=== PATIENT | female | born 1940 | race Two or more races ===

== ENCOUNTER 2016-12-03 18:09 | Inpatient (IN) | payer MEDICARE, MEDICAID ==
[2016-12-03] MEDS ORDERED: Sodium Chloride 0.9% 1,000 ML IV ONE ×2 (18:28→20:13)
--- NOTE | 2016-12-03 18:40 | ED Physician Chart ---
Chief Complaint/HPI - Patient Information Date Seen:: 12/03/16 Time Seen:: 18:24 Chief Complaint:: HYPONATREMIA, HYPERGLYCEMIA, POOR FOOD INTAKE. History of Present Illness:: The patient states that she is here in the emergency department because she can' t eat. She has lost her appetite she is able to swallow liquids. Paperwork which accompany the patient stated she was also being sent to the emergency department for evaluation of laboratory studies, specifically hyponatremia and hyperglycemia. Patient denies any pain anywhere, any vomiting or diarrhea, fever, chills or sweats. Patient does complain of generalized weakness. Allergies:: Allergies Allergy/AdvReac Type Severity Reaction Status Date / Time No Known Allergies Allergy Verified 12/03/16 18:22 <Kevin Cox - Last Filed: 12/03/16 19:20> - Patient Information Allergies:: Allergies Allergy/AdvReac Type Severity Reaction Status Date / Time No Known Allergies Allergy Verified 12/03/16 18:22 Vitals:: Vital Signs - 8 hr 12/03/16 12/03/16 12/03/16 18:29 18:30 19:30 Temp 97.9 F 97.8 F HR 93 83 RR 16 18 BP 150/84 172/72 184/78 O2 Sat % 97 98 12/03/16 12/03/16 20:17 20:18 Temp HR 87 87 RR 19 BP 200/75 O2 Sat % 97 <Eliud Dubon - Last Filed: 12/03/16 20:51> Review of Systems - Review of Systems General/Constitutional: No fever, No chills, No diaphoresis, Loss of appetite, Other (no recent head injury, falls or other trauma.) Skin: No skin lesions, No rash, No bruising Head: No headache Eyes: No loss of vision, No pain, No diplopia ENT: No earache, No nasal drainage, No sore throat, No tinnitus Neck: No neck pain, No swelling, No thyromegaly, No stiffness, No mass noted Cardio Vascular: No chest pain, No palpitations, No PND, No edema Pulmonary: No SOB, No cough, No sputum, No wheezing GI: Nausea, No vomiting, No diarrhea, No pain, Hematemesis G/U: Dysuria, No frequency, No hematuria, Other (patient reports having mild dysuria.) News Specialist: No vaginal discharge Musculoskeletal: No bone or joint pain, No back pain, No muscle pain Psychiatric: Suicidal ideation, No suicidal ideation Hematopoietic: No bruising, No lymphadenopathy Allergic/Immuno: No urticaria, No angioedema Neurological: No syncope, No focal symptoms, Weakness (weakness is not focal but generalized.), No paresthesia, No headache, No seizure, Confusion (patient is aware of her name and that she is in a hospital but has no idea of what year it is.), No vertigo <Kevin Cox - Last Filed: 12/03/16 19:20> Past Medical History - Past Medical History Past Medical History: Other (history of sepsis secondary to pyelonephritis recently. He should also is status post cardiac arrest. History of anemia. Patient is also status post cataract surgery both eyes and .) Family History: Heart disease, Diabetes [place] Social History: Non Smoker, No Alcohol, No Drug Use, Care Facility Surgical History: Hysterectomy (cataract surgery both eyes.) <Kevin Cox - Last Filed: 12/03/16 19:20> Family Medical History - Family Member Mother History Unknown: Yes <Kevin Cox - Last Filed: 12/03/16 19:20> Physical Exam - Physical Examination General/Constitutional: Well-developed, well-nourished, Alert, No distress, Non- toxic appearing, Ambulatory Other Gen/Cons comments:: Patient is ambulatory according to transporting EMS. Head: Atraumatic Other Head comments:: No visible or palpable evidence of any recent head trauma. Eyes: Lids, conjuctiva normal, PERRL, EOMI Other Eyes comments:: Lens implants can be seen in both eyes. Skin: Nl inspection, No rash, No skin lesions, No ecchymosis, Well hydrated, No lymphadenopathy ENMT: External ears, nose nl, Nasal exam nl, Oropharynx nl, Tonsils nl Other ENMT comments:: The patient has adequate oral hydration and both upper and lower dentures. Neck: Nontender, Full ROM w/o pain, No JVD, No nuchal rigidity, No mass, No stridor Respiratory: Nl effort/Exclusion, No Wheeze/Rhonchi/Rales Cardio Vascular: RRR, No murmur, gallop, rubs, NL S1 S2 Other Cardio Vascular comments:: Adequate pulses in all 4 extremities. GI: No tenderness/rebounding/guarding, No organomegaly, No hernia, Nondistended , No mass/bruits, No McBurney tenderness Other GI comments:: Rectal examination deferred at my discretion. : No CVA tenderness Extremities: No tenderness or effusion, Full ROM, normal strength in all extremities, No edema Other Extremities comments:: No obvious deformities. Misc: Normal back, No paraspinal tenderness <Kevin Cox - Last Filed: 12/03/16 19:20> Labs/Radiology/EKG Results - Lab Results Results: Laboratory Tests 12/03/16 12/03/16 12/03/16 18:38 18:38 18:38 WBC 6.9 RBC 4.19 Hgb 11.7 Hct 34.3 L MCV 81.8 MCH 27.9 MCHC Differential 34.1 RDW 13.1 Plt Count 202 MPV 10.5 Neutrophils (Manual) 68 Lymphocytes 30 Monocytes 2 Platelet Estimate ADEQUATE Platelet Morphology PLATELET CLUMPS SEEN RBC Morph Micro Appear NORMAL Sodium 119 L* Potassium 3.6 Chloride 81 L Carbon Dioxide 32.9 H Anion Gap 8.7 BUN 18 Creatinine 1.3 H Est GFR ( Amer) TNP Est GFR (Non-Af Amer) TNP BUN/Creatinine Ratio 13.8 Glucose 685 H* Hemoglobin A1c % Whole Bld Lactic Acid 1.06 Calcium 9.3 Total Bilirubin 0.5 AST 34 ALT 19 Alkaline Phosphatase 140 H Total Protein 7.2 Albumin 3.5 L Globulin 3.7 Albumin/Globulin Ratio 1.0 Urine Source Urine Color Urine Clarity Urine pH Ur Specific [place] Urine Protein Urine Glucose (UA) Urine Ketones Urine Blood Urine Nitrate Urine Bilirubin Urine Urobilinogen Ur Leukocyte Esterase Urine RBC Urine WBC Ur Epithelial Cells Amorphous Sediment Urine Bacteria 12/03/16 12/03/16 18:38 19:50 WBC RBC Hgb Hct MCV MCH MCHC Differential RDW Plt Count MPV Neutrophils (Manual) Lymphocytes Monocytes Platelet Estimate Platelet Morphology RBC Morph Micro Appear Sodium Potassium Chloride Carbon Dioxide Anion Gap BUN Creatinine Est GFR ( Amer) Est GFR (Non-Af Amer) BUN/Creatinine Ratio Glucose Hemoglobin A1c % 10.5 H Whole Bld Lactic Acid Calcium Total Bilirubin AST ALT Alkaline Phosphatase Total Protein Albumin Globulin Albumin/Globulin Ratio Urine Source [place] Urine Color PALE YELLOW Urine Clarity SLIGHT HAZY Urine pH 7.5 Ur Specific [place] 1.015 Urine Protein TRACE Urine Glucose (UA) 500 H Urine Ketones NEGATIVE Urine Blood TRACE Urine Nitrate NEGATIVE Urine Bilirubin NEGATIVE Urine Urobilinogen 0.2 Ur Leukocyte Esterase TRACE H Urine RBC 0-2 Urine WBC 2-5 Ur Epithelial Cells OCCASIONAL Amorphous Sediment FEW URATES Urine Bacteria MODERATE - Radiology Results Comments:: Single AP VIEW Portable Chest X-ray was interpreted independently and contemporaneously by Anitra Dubon MD: No cardiomegaly Normal mediastinum No lung infiltrates No pneumothorax No soft tissue or bony abnormalities - EKG Interpretations Comments:: 12-lead EKG Interpretation by Anitra Dubon MD: Normal Sinus Rhythm with ventricular rate of 82 beats per minute Normal axis Normal intervals No acute ST or T wave changes. No obvious STEMI <Eliud Dubon - Last Filed: 12/03/16 20:51> Assessment - Assessment General Assessment: CASE SUMMARY: This 76-year-old female was sent to the emergency department for poor appetite, hyponatremia and hyperglycemia in the 500 range. Review of systems the patient reports generalized weakness, nausea and lack of appetite. She is pain-free at this time. She has no respiratory distress. Laboratory studies were ordered including lactic acid to look for occult sepsis. Chest x-ray and EKG are pending at the present time. My shift is ending at 7 PM and at that time the patient will be passed on to Dr. Coelho for review of laboratory studies and disposition. <Kevin Cox - Last Filed: 12/03/16 19:20> ED Septic Shock - . Is Septic Shock (SBP<90, OR Lactate>4 mmol\L) present?: No <Kevin Cox - Last Filed: 12/03/16 19:20> - . Is Septic Shock (SBP<90, OR Lactate>4 mmol\L) present?: No - <6hrs of presentation: Vital Signs: Vital Signs - 8 hr 12/03/16 12/03/16 12/03/16 18:29 18:30 19:30 Temp 97.9 F 97.8 F HR 93 83 RR 16 18 BP 150/84 172/72 184/78 O2 Sat % 97 98 12/03/16 12/03/16 20:17 20:18 Temp HR 87 87 RR 19 BP 200/75 O2 Sat % 97 <Eliud Dubon - Last Filed: 12/03/16 20:51> Reassessment (Disposition) - Reassessment Reassessment:: Patient's blood sugars near 700. She's uncontrolled diabetic. Also has severe hyponatremia. Some of this is displaced by the high glucose. We gave 2 L of IV normal saline and 10 units of IV regular insulin. Patient will need further treatment before she can safely be discharged. Discussed case with admitting physician. Patient will be admitted for further workup and treatment. Reassessment Condition:: Improved - Diagnosis Diagnosis:: Severe hyperglycemia Uncontrolled diabetes mellitus type 2 Hyponatremia Hypertension - Patient Disposition Discharge/Transfer:: Acute Care w/in this hosp Admitting Medical Physician:: Juan Carlos Velasco Time:: 20:50 Condition at Disposition:: Improved <Eliud Dubon - Last Filed: 12/03/16 20:51>
[2016-12-03 18:45] VITALS: BP 150/84
[2016-12-03 18:51] LABS: HEMATOCRIT 34.3 % (35.0-45.0); HEMOGLOBIN 11.7 gm/dL (11.7-16.1); MEAN CELL VOLUME 81.8 fl (81-100); MEAN CORPUSCULAR HEMOGLOBIN 27.9 pg (27.0-31.0); MEAN CORPUSCULAR HGB CONC 34.1 pg (28.0-36.0); MEAN PLATELET VOLUME 10.5 fl; PLATELET COUNT 202 Th/cmm (150-400); RED BLOOD COUNT 4.19 Mil/cmm (3.80-5.20); RED CELL DISTRIBUTION WIDTH 13.1 % (11.5-20.0); WHITE BLOOD COUNT 6.9 Th/cmm (4.8-10.8)
[2016-12-03 19:02] LABS: ALKALINE PHOSPHATASE 140 U/L (34-104); BILIRUBIN,TOTAL 0.5 mg/dL (0.3-1.0); BUN - UREA NITROGEN 18 mg/dL (7-25); BUN/CREATININE RATIO 13.8; CALCIUM SERUM 9.3 mg/dL (8.6-10.3); CARBON DIOXIDE 32.9 mEq/L (21.0-31.0); CHLORIDE 81 mEq/L (98-107); CREATININE - SERUM 1.3 mg/dL (0.6-1.2); POTASSIUM SERUM 3.6 mEq/L (3.5-5.1); SGOT 34 U/L (13-39); SGPT/ALT 19 U/L (7-52)
[2016-12-03 19:09] LABS: NEUTROPHILS 68 % (40-80); PLATELET ESTIMATE ADEQUATE (NORMAL); PLATELET MORPHOLOGY PLATELET CLUMPS SEEN (NORMAL); TOTAL CELLS COUNTED 100
[2016-12-03 19:15] LABS: ANION GAP 8.7 (7.0-16.0); GLUCOSE 685 mg/dL (70-105); SODIUM SERUM 119 mEq/L (136-145)
[2016-12-03 20:05] LABS: URINE COLOR PALE YELLOW; URINE GLUCOSE (UA) 500 mg/dL (NEGATIVE)
[2016-12-03 20:06] LABS: URINE BILIRUBIN NEGATIVE (NEGATIVE); URINE BLOOD TRACE (NEGATIVE); URINE KETONE NEGATIVE (NEGATIVE); URINE PH 7.5; URINE PROTEIN TRACE mg/dL (NEGATIVE); URINE UROBILINOGEN 0.2 E.U./dL (0.2 - 1.0)
[2016-12-03 20:07] LABS: URINE AMORPHOUS SEDIMENT FEW URATES (NONE SEEN); URINE BACTERIA MODERATE /hpf (NONE SEEN); URINE EPITHELIAL CELLS OCCASIONAL /lpf (FEW); URINE RBC 0-2 /hpf (0-5)
[2016-12-03] MEDS ORDERED: INSULIN HUMAN REGULAR 100 UNITS/ML UNIT IV ONE (20:11)
[2016-12-03] MEDS ORDERED: INSULIN HUMAN REGULAR 100 UNITS/ML UNIT ONE (20:15)
[2016-12-03] MEDS ORDERED: cefTRIAXone 1 GM in Sodium Chloride 0.9% 50 ML IV ONE (21:05)
[2016-12-03] MEDS: Sodium Chloride 0.9% 1,000 ML IV SCH (22:14)
--- NOTE | 2016-12-03 22:53 | Admit Criteria Form ---
Admit Criteria Forms - Admit Criteria Diagnosis: DIABETES Clinical Indications for Admission to Inpatient Care (Place 'X' for any and all applicable criteria): Admission is indicated by presence of ALL (if I & II) or ANY ONE (if III or IV) of the following (1)(2)(3)(4): [X]I. Diabetes is uncontrolled as indicated by ANY ONE of the following: [ ]a) Diabetic ketoacidosis as indicated by ALL of the following (8): [ ]i) Hyperglycemia (eg, plasma glucose greater than 200 mg/ dL (11.1 mmol/L)) [ ]ii) Acidosis (eg, arterial pH less than 7.30, serum bicarbonate level less than 15 mEq/L (mmol/L)) [ ]iii) Moderate ketonuria or ketonemia [ ]b) Hyperglycemic hyperosmolar state as indicated by ALL of the following(9)(10): [ ]i) Neurologic dysfunction (eg, stupor, coma, hemiparesis , seizure)(13) [ ]ii) Plasma glucose greater than 600 mg/dL (33.3 mmol/L) [ ]iii) Serum osmolality greater than 320 mOsm/kg (mmol/kg) [X]c) Severe signs or symptoms secondary to hyperglycemia indicated by ANY ONE of the following: [ ]i) Altered mental status(10) [ ]ii) Significant hypovolemia or dehydration [ ]iii) Intractable nausea or vomiting [ ]iv) Unexplained fever or severe infection [X]v) Severe electrolyte abnormality (eg, hypokalemia, hyperkalemia, hypernatremia) [X]II. Management at other levels of care (Also use Diabetes: Observation Care as appropriate) is not feasible because of ANY ONE of the following: [X]a) Condition was not adequately corrected with treatment at other levels of care. [ ]b) Treatment at other levels of care is not appropriate because of condition severity (eg, hyperosmolar coma). [ ]III. Contraindications and/or Inappropriate clinical situations for Observational Care in patients with Diabetes, when ANY ONE of the following is required: [ ]a) Patient require specific diagnostic workup or therapeutic intervention 22 [ ]b) Patient with abnormal vital signs or altered mental status 23 [ ]IV. General contraindications and/or Inappropriate clinical situations for Observational Care in patients with Diabetes, when ANY ONE of the following is required: [ ]a) Prediction of prolongation of LOS based on ANY ONE of the following may be considered as a contraindication for observational care 2, 3, 4, 5, 6, 7, 8, 9, 10, 11 [ ]i) Age > 65 yrs. [ ]ii) Patient arriving by ambulance [ ]iii) Patient with high acuity [ ]iv) Patient requiring vital sign monitoring [ ]v) Patient on IV medication [ ]b) Systolic blood pressures 180mmHg 3,12 [ ]c) Patient with altered mental status including delirium and other alteration of consciousness, (3) [ ]d) Patient whose discharge disposition will be to a [place] [facility] home or rehabilitation home should not be managed in Emergency Department Observation Unit. CMS rule requires 3 days hospital stay before such placement.3,13 [ ]e) Patient with failure to thrive due to broad array of etiologies 3,16,17 [ ]f) Inability to ambulate 3,14 Extended stay beyond goal length of stay may be needed for(3)(20): [ ]a) Treatment of precipitating causes [ ]b) Development of hypoglycemia [ ]c) Complications of treatment [ ]d) Complications of decompensated diabetes (eg, acute gastric dilatation, persistent metabolic or neurologic derangement) [ ]e) Active Comorbidities [ ]f) Older patients( 65 years or older) The original [employer] content created by [email or web address] has been revised. The portions of the content which have been revised are identified through the use of italic text or in bold,and [facility] has neither reviewed nor approved the modified material. All other unmodified content is copyright [facility]. Please see references footnoted in the original [facility] edition 2016 Admit Criteria Met?: Yes
[2016-12-04] MEDS: INSULIN ASPART SLIDING SCALE 100 UNITS/ML UNIT SUBQ SCH ×4 (06:31→20:23)
[2016-12-04 07:07] LABS: % BASOPHILS 0.4 % (0.0-2.0); % EOSINOPHILS 2.1 % (0.0-5.0); % LYMPHOCYTES 29.4 % (20.0-50.0); % MONOCYTES 5.7 % (2.0-10.0); % NEUTROPHILS 62.4 % (40.0-80.0); HEMOGLOBIN 10.4 gm/dL (11.7-16.1); MEAN CELL VOLUME 82.4 fl (81-100); MEAN CORPUSCULAR HEMOGLOBIN 28.6 pg (27.0-31.0); MEAN CORPUSCULAR HGB CONC 34.7 pg (28.0-36.0); MEAN PLATELET VOLUME 9.5 fl; NEUTROPHILE ABSOLUTE 5.1 Th/cmm (1.8-8.0); PLATELET COUNT 217 Th/cmm (150-400); RED BLOOD COUNT 3.63 Mil/cmm (3.80-5.20); RED CELL DISTRIBUTION WIDTH 13.4 % (11.5-20.0); WHITE BLOOD COUNT 8.2 Th/cmm (4.8-10.8)
[2016-12-04 07:34] LABS: ANION GAP 7.7 (7.0-16.0); BUN - UREA NITROGEN 16 mg/dL (7-25); BUN/CREATININE RATIO 13.3; CALCIUM SERUM 8.6 mg/dL (8.6-10.3); CARBON DIOXIDE 31.6 mEq/L (21.0-31.0); CHLORIDE 93 mEq/L (98-107); CREATININE - SERUM 1.2 mg/dL (0.6-1.2); GLUCOSE 378 mg/dL (70-105); POTASSIUM SERUM 3.3 mEq/L (3.5-5.1); SODIUM SERUM 129 mEq/L (136-145)
[2016-12-04] MEDS: Aspirin 81mg Chewable Tab PO SCH (08:38)
--- NOTE | 2016-12-04 09:33 | Diagnostic Imaging Report ---
INDICATION: Shortness of breath and chest pain FINDINGS: Heart size is enlarged..Aorta is tortuous.. There are no infiltrates or effusions. Degenerative changes in the thoracic spine. IMPRESSION: Cardiomegaly .. No acute cardiopulmonary pathology.
[2016-12-04] MEDS: Sodium Chloride 0.9% 1,000 ML IV SCH (17:55)
--- NOTE | 2016-12-04 19:13 | General Progress Note ---
Subjective - Review of Systems Service Date: 12/04/16 Objective - Results Result Diagrams: 12/04/16 06:45 12/04/16 06:45 Recent Labs: Laboratory Last Values WBC 8.2 Th/cmm (4.8-10.8) 12/04/16 06:45 RBC 3.63 Mil/cmm (3.80-5.20) L 12/04/16 06:45 Hgb 10.4 gm/dL (11.7-16.1) L 12/04/16 06:45 Hct 30.0 % (35.0-45.0) L D 12/04/16 06:45 MCV 82.4 fl (81-100) 12/04/16 06:45 MCH 28.6 pg (27.0-31.0) 12/04/16 06:45 MCHC Differential 34.7 pg (28.0-36.0) 12/04/16 06:45 RDW 13.4 % (11.5-20.0) 12/04/16 06:45 Plt Count 217 Th/cmm (150-400) 12/04/16 06:45 MPV 9.5 fl 12/04/16 06:45 Neutrophils % 62.4 % (40.0-80.0) 12/04/16 06:45 Lymphocytes % 29.4 % (20.0-50.0) 12/04/16 06:45 Monocytes % 5.7 % (2.0-10.0) 12/04/16 06:45 Eosinophils % 2.1 % (0.0-5.0) 12/04/16 06:45 Basophils % 0.4 % (0.0-2.0) 12/04/16 06:45 Neutrophils (Manual) 68 % (40-80) 12/03/16 18:38 Lymphocytes 30 % (20-50) 12/03/16 18:38 Monocytes 2 % (2-10) 12/03/16 18:38 Platelet Estimate ADEQUATE (NORMAL) 12/03/16 18:38 Platelet Morphology PLATELET CLUMPS SEEN (NORMAL) 12/03/16 18:38 RBC Morph Micro Appear NORMAL (NORMAL) 12/03/16 18:38 Sodium 129 mEq/L (136-145) L 12/04/16 06:45 Potassium 3.3 mEq/L (3.5-5.1) L 12/04/16 06:45 Chloride 93 mEq/L (98-107) L 12/04/16 06:45 Carbon Dioxide 31.6 mEq/L (21.0-31.0) H 12/04/16 06:45 Anion Gap 7.7 (7.0-16.0) 12/04/16 06:45 BUN 16 mg/dL (7-25) 12/04/16 06:45 Creatinine 1.2 mg/dL (0.6-1.2) 12/04/16 06:45 Est GFR ( Amer) TNP 12/04/16 06:45 Est GFR (Non-Af Amer) TNP 12/04/16 06:45 BUN/Creatinine Ratio 13.3 12/04/16 06:45 Glucose 378 mg/dL (70-105) H 12/04/16 06:45 POC Glucose 291 MG/DL (70 - 105) H 12/04/16 17:05 Hemoglobin A1c % 10.5 % (4.0-6.0) H 12/03/16 18:38 Whole Bld Lactic Acid 1.06 mmol/L (0.60-1.99) 12/03/16 18:38 Calcium 8.6 mg/dL (8.6-10.3) 12/04/16 06:45 Total Bilirubin 0.5 mg/dL (0.3-1.0) 12/03/16 18:38 AST 34 U/L (13-39) 12/03/16 18:38 ALT 19 U/L (7-52) 12/03/16 18:38 Alkaline Phosphatase 140 U/L (34-104) H 12/03/16 18:38 Total Protein 7.2 gm/dL (6.0-8.3) 12/03/16 18:38 Albumin 3.5 gm/dL (3.7-5.3) L 12/03/16 18:38 Globulin 3.7 gm/dL 12/03/16 18:38 Albumin/Globulin Ratio 1.0 (1.0-1.8) 12/03/16 18:38 Urine Source [place] 12/03/16 19:50 Urine Color PALE YELLOW 12/03/16 19:50 Urine Clarity SLIGHT HAZY (CLEAR) 12/03/16 19:50 Urine pH 7.5 12/03/16 19:50 Ur Specific [place] 1.015 (1.005-1.030) 12/03/16 19:50 Urine Protein TRACE mg/dL (NEGATIVE) 12/03/16 19:50 Urine Glucose (UA) 500 mg/dL (NEGATIVE) H 12/03/16 19:50 Urine Ketones NEGATIVE mg/dL (NEGATIVE) 12/03/16 19:50 Urine Blood TRACE (NEGATIVE) 12/03/16 19:50 Urine Nitrate NEGATIVE (NEGATIVE) 12/03/16 19:50 Urine Bilirubin NEGATIVE (NEGATIVE) 12/03/16 19:50 Urine Urobilinogen 0.2 E.U./dL (0.2 - 1.0) 12/03/16 19:50 Ur Leukocyte Esterase TRACE (NEGATIVE) H 12/03/16 19:50 Urine RBC 0-2 /hpf (0-5) 12/03/16 19:50 Urine WBC 2-5 /hpf (0-5) 12/03/16 19:50 Ur Epithelial Cells OCCASIONAL /lpf (FEW) 12/03/16 19:50 Amorphous Sediment FEW URATES (NONE SEEN) 12/03/16 19:50 Urine Bacteria MODERATE /hpf (NONE SEEN) 12/03/16 19:50 - Physical Exam Vitals and I&O: Vital Signs Temp 97.8 F 12/04/16 16:00 Pulse 80 12/04/16 16:00 Resp 17 12/04/16 16:00 BP 130/55 12/04/16 16:00 Pulse Ox 97 12/04/16 16:00 Intake & Output 12/04/16 12/04/16 12/05/16 06:59 18:59 06:59 Intake Total 120 1400 Output Total 100 Balance 20 1400 Intake: Intake, IV Amount 1000 Sodium Chloride 0.9% 1, 1000 000 ml @ 60 mls/hr IV . [id number] [facility] Rx#:[id number] Oral 120 400 Output: Urine 100 Other: # Voids 1 2 # Bowel Movements 0 Active Medications: Current Medications Acetaminophen (Tylenol) 650 mg PO Q4HR PRN PRN Reason: Fever > 101 Stop: 02/01/17 21:28 Alendronate Sodium (Fosamax) 70 mg PO QTHUR [facility] Stop: 02/06/17 07:29 Aspirin (Aspirin Chewable) 81 mg PO DAILY [facility] Stop: 02/02/17 08:59 Last Admin: 12/04/16 08:38 Dose: 81 mg Clonidine HCl (Catapres) 0.1 mg PO Q4HR PRN PRN Reason: SBP ABOVE 160 Stop: 02/01/17 21:28 Heparin Sodium (Porcine) (Heparin) 5,000 units SUBQ Q12HR [facility] Stop: 02/02/17 20:59 Hydrochlorothiazide (Hctz) 25 mg PO DAILY [facility] Stop: 02/02/17 08:59 Last Admin: 12/04/16 08:36 Dose: 25 mg Sodium Chloride (Nacl 0.9%) 1,000 mls @ 60 mls/hr IV .[id number] [facility] Stop: 02/01/17 21:29 Last Admin: 12/04/16 17:55 Dose: 60 mls/hr Insulin Aspart (Novolog Insulin Sliding Scale) 0 units SUBQ ACHS [facility] PRN Reason: Protocol Stop: 02/02/17 07:29 Last Admin: 12/04/16 18:46 Dose: 7 units Isosorbide Mononitrate (Imdur) 60 mg PO DAILY [facility] Stop: 02/02/17 08:59 Last Admin: 12/04/16 08:37 Dose: 60 mg Losartan Potassium (Cozaar) 100 mg PO DAILY [facility] Stop: 02/02/17 08:59 Last Admin: 12/04/16 08:38 Dose: 100 mg Nitroglycerin (Nitrostat) 0.4 mg SL Q15M PRN PRN Reason: Chest Pain Stop: 02/01/17 21:28
--- NOTE | 2016-12-04 19:42 | History & Physical ---
HISTORY OF PRESENT ILLNESS: The patient has increasing lethargy, increasing weakness, was brought to the ER and was found to have UTI and was admitted for sepsis, pyelonephritis, history of recent DE, history of anemia, history of status post cardiac arrest, history of C-sensation in the past, history of cataract surgery, and ____ the patient was admitted for further evaluation and treatment. The patient also has a history of diabetes. PAST MEDICAL HISTORY: As enumerated above. PAST SURGICAL HISTORY: As enumerated above. PHYSICAL EXAMINATION: GENERAL: The patient is alert, oriented, elderly female, somewhat lethargic, and arousable. HEAD: Normal. ENT: Normal. NECK: Supple, nontender. LUNGS: Clear. CARDIOVASCULAR SYSTEM: S1, S2 heard. ABDOMEN: Soft. Bowel sounds are heard. CENTRAL NERVOUS SYSTEM: Decreased sensorium. LABORATORY DATA: The patient's urine showed some evidence of infection. DIAGNOSES: Urinary tract infection, possible sepsis, toxic metabolic encephalopathy, history of cerebrovascular accident, history of diabetes, history of myocardial infarction in the past, and multiple surgeries. PLAN: The patient is being admitted and Dr. Alvarado Garber will see as a cognos consultant for ID. I will follow the patient. JOB# [id number]
--- NOTE | 2016-12-04 23:37 | Infectious Disease Prog Note ---
Infectious Disease Subjective - Review of Systems Service Date: 12/04/16 Infectious Disease Objective - Results Result Diagrams: 12/04/16 06:45 12/04/16 06:45 Recent Labs: Laboratory Last Values WBC 8.2 Th/cmm (4.8-10.8) 12/04/16 06:45 RBC 3.63 Mil/cmm (3.80-5.20) L 12/04/16 06:45 Hgb 10.4 gm/dL (11.7-16.1) L 12/04/16 06:45 Hct 30.0 % (35.0-45.0) L D 12/04/16 06:45 MCV 82.4 fl (81-100) 12/04/16 06:45 MCH 28.6 pg (27.0-31.0) 12/04/16 06:45 MCHC Differential 34.7 pg (28.0-36.0) 12/04/16 06:45 RDW 13.4 % (11.5-20.0) 12/04/16 06:45 Plt Count 217 Th/cmm (150-400) 12/04/16 06:45 MPV 9.5 fl 12/04/16 06:45 Neutrophils % 62.4 % (40.0-80.0) 12/04/16 06:45 Lymphocytes % 29.4 % (20.0-50.0) 12/04/16 06:45 Monocytes % 5.7 % (2.0-10.0) 12/04/16 06:45 Eosinophils % 2.1 % (0.0-5.0) 12/04/16 06:45 Basophils % 0.4 % (0.0-2.0) 12/04/16 06:45 Neutrophils (Manual) 68 % (40-80) 12/03/16 18:38 Lymphocytes 30 % (20-50) 12/03/16 18:38 Monocytes 2 % (2-10) 12/03/16 18:38 Platelet Estimate ADEQUATE (NORMAL) 12/03/16 18:38 Platelet Morphology PLATELET CLUMPS SEEN (NORMAL) 12/03/16 18:38 RBC Morph Micro Appear NORMAL (NORMAL) 12/03/16 18:38 Sodium 129 mEq/L (136-145) L 12/04/16 06:45 Potassium 3.3 mEq/L (3.5-5.1) L 12/04/16 06:45 Chloride 93 mEq/L (98-107) L 12/04/16 06:45 Carbon Dioxide 31.6 mEq/L (21.0-31.0) H 12/04/16 06:45 Anion Gap 7.7 (7.0-16.0) 12/04/16 06:45 BUN 16 mg/dL (7-25) 12/04/16 06:45 Creatinine 1.2 mg/dL (0.6-1.2) 12/04/16 06:45 Est GFR ( Amer) TNP 12/04/16 06:45 Est GFR (Non-Af Amer) TNP 12/04/16 06:45 BUN/Creatinine Ratio 13.3 12/04/16 06:45 Glucose 378 mg/dL (70-105) H 12/04/16 06:45 POC Glucose 339 MG/DL (70 - 105) H 12/04/16 20:09 Hemoglobin A1c % 10.5 % (4.0-6.0) H 12/03/16 18:38 Whole Bld Lactic Acid 1.06 mmol/L (0.60-1.99) 12/03/16 18:38 Calcium 8.6 mg/dL (8.6-10.3) 12/04/16 06:45 Total Bilirubin 0.5 mg/dL (0.3-1.0) 12/03/16 18:38 AST 34 U/L (13-39) 12/03/16 18:38 ALT 19 U/L (7-52) 12/03/16 18:38 Alkaline Phosphatase 140 U/L (34-104) H 12/03/16 18:38 Total Protein 7.2 gm/dL (6.0-8.3) 12/03/16 18:38 Albumin 3.5 gm/dL (3.7-5.3) L 12/03/16 18:38 Globulin 3.7 gm/dL 12/03/16 18:38 Albumin/Globulin Ratio 1.0 (1.0-1.8) 12/03/16 18:38 Urine Source [place] 12/03/16 19:50 Urine Color PALE YELLOW 12/03/16 19:50 Urine Clarity SLIGHT HAZY (CLEAR) 12/03/16 19:50 Urine pH 7.5 12/03/16 19:50 Ur Specific [place] 1.015 (1.005-1.030) 12/03/16 19:50 Urine Protein TRACE mg/dL (NEGATIVE) 12/03/16 19:50 Urine Glucose (UA) 500 mg/dL (NEGATIVE) H 12/03/16 19:50 Urine Ketones NEGATIVE mg/dL (NEGATIVE) 12/03/16 19:50 Urine Blood TRACE (NEGATIVE) 12/03/16 19:50 Urine Nitrate NEGATIVE (NEGATIVE) 12/03/16 19:50 Urine Bilirubin NEGATIVE (NEGATIVE) 12/03/16 19:50 Urine Urobilinogen 0.2 E.U./dL (0.2 - 1.0) 12/03/16 19:50 Ur Leukocyte Esterase TRACE (NEGATIVE) H 12/03/16 19:50 Urine RBC 0-2 /hpf (0-5) 12/03/16 19:50 Urine WBC 2-5 /hpf (0-5) 12/03/16 19:50 Ur Epithelial Cells OCCASIONAL /lpf (FEW) 12/03/16 19:50 Amorphous Sediment FEW URATES (NONE SEEN) 12/03/16 19:50 Urine Bacteria MODERATE /hpf (NONE SEEN) 12/03/16 19:50 - Physical Exam Vitals and I&O: Vital Signs Temp 97.1 F 12/04/16 20:00 Pulse 78 12/04/16 20:00 Resp 19 12/04/16 20:00 BP 148/64 12/04/16 20:00 Pulse Ox 99 12/04/16 20:00 Intake & Output 12/04/16 12/04/16 12/05/16 06:59 18:59 06:59 Intake Total 120 1400 Output Total 100 Balance 20 1400 Intake: Intake, IV Amount 1000 Sodium Chloride 0.9% 1, 1000 000 ml @ 60 mls/hr IV . [id number] [facility] Rx#:[id number] Oral 120 400 Output: Urine 100 Other: # Voids 1 2 # Bowel Movements 0 Active Medications: Current Medications Acetaminophen (Tylenol) 650 mg PO Q4HR PRN PRN Reason: Fever > 101 Stop: 02/01/17 21:28 Last Admin: 12/04/16 20:25 Dose: 650 mg Alendronate Sodium (Fosamax) 70 mg PO QTHUR [facility] Stop: 02/06/17 07:29 Aspirin (Aspirin Chewable) 81 mg PO DAILY [facility] Stop: 02/02/17 08:59 Last Admin: 12/04/16 08:38 Dose: 81 mg Clonidine HCl (Catapres) 0.1 mg PO Q4HR PRN PRN Reason: SBP ABOVE 160 Stop: 02/01/17 21:28 Heparin Sodium (Porcine) (Heparin) 5,000 units SUBQ Q12HR [facility] Stop: 02/02/17 20:59 Last Admin: 12/04/16 20:24 Dose: 5,000 units Hydrochlorothiazide (Hctz) 25 mg PO DAILY [facility] Stop: 02/02/17 08:59 Last Admin: 12/04/16 08:36 Dose: 25 mg Sodium Chloride (Nacl 0.9%) 1,000 mls @ 60 mls/hr IV .[id number] [facility] Stop: 02/01/17 21:29 Last Admin: 12/04/16 17:55 Dose: 60 mls/hr Insulin Aspart (Novolog Insulin Sliding Scale) 0 units SUBQ ACHS [facility] PRN Reason: Protocol Stop: 02/02/17 07:29 Last Admin: 12/04/16 20:23 Dose: 9 units Isosorbide Mononitrate (Imdur) 60 mg PO DAILY [facility] Stop: 02/02/17 08:59 Last Admin: 12/04/16 08:37 Dose: 60 mg Losartan Potassium (Cozaar) 100 mg PO DAILY [facility] Stop: 02/02/17 08:59 Last Admin: 12/04/16 08:38 Dose: 100 mg Nitroglycerin (Nitrostat) 0.4 mg SL Q15M PRN PRN Reason: Chest Pain Stop: 02/01/17 21:28
[2016-12-05] MEDS: INSULIN ASPART SLIDING SCALE 100 UNITS/ML UNIT SUBQ SCH ×4 (07:07→21:06)
[2016-12-05] MEDS: Aspirin 81mg Chewable Tab PO SCH (08:42)
[2016-12-05] MEDS: Sodium Chloride 0.9% 1,000 ML IV SCH (11:23)
[2016-12-05 11:42] LABS: BUN - UREA NITROGEN 11 mg/dL (7-25); BUN/CREATININE RATIO 12.2; CALCIUM SERUM 9.2 mg/dL (8.6-10.3); CARBON DIOXIDE 26.6 mEq/L (21.0-31.0); CREATININE - SERUM 0.9 mg/dL (0.6-1.2); GLUCOSE 229 mg/dL (70-105); POTASSIUM SERUM 3.3 mEq/L (3.5-5.1); SODIUM SERUM 131 mEq/L (136-145)
[2016-12-05 11:54] LABS: ANION GAP 7.7 (7.0-16.0); CHLORIDE 100 mEq/L (98-107)
[2016-12-05] MEDS ORDERED: Potassium Chloride 20 mEq ER Tab PO ONE (12:34)
--- NOTE | 2016-12-06 03:02 | Progress Notes ---
SUBJECTIVE: The patient was seen in her room having dinner. Per patient, she still feels weak and having low appetite. OBJECTIVE: HEENT: Head: Atraumatic and normocephalic. Eyes: Bilateral conjunctivae are clear for injections. NECK: Supple. No JVD. CARDIOVASCULAR: S1 and S2 heard without murmur. PULMONARY: Clear to auscultation. GASTROINTESTINAL: Soft and nontender without guarding. MUSCULOSKELETAL: No edema and no clubbing noted. ASSESSMENT: 1. Urinary tract infection. 2. Osteoporosis. 3. Hypertension. 4. Diabetes. 5. Muscle weakness. PLAN: We will continue to monitor the patient in the Med/Surg unit and we will continue IV antibiotics per ID doctor. JOB# [id number]
[2016-12-06] MEDS: INSULIN ASPART SLIDING SCALE 100 UNITS/ML UNIT SUBQ SCH ×4 (07:01→21:05)
[2016-12-06] MEDS: Aspirin 81mg Chewable Tab PO SCH (08:26)
--- NOTE | 2016-12-06 08:57 | General Progress Note ---
Subjective - Review of Systems Service Date: 12/06/16 Events since last encounter: patient still feeling weak Objective - Results Result Diagrams: 12/06/16 09:50 12/06/16 09:50 Recent Labs: Laboratory Last Values WBC 8.2 Th/cmm (4.8-10.8) 12/04/16 06:45 RBC 3.63 Mil/cmm (3.80-5.20) L 12/04/16 06:45 Hgb 10.4 gm/dL (11.7-16.1) L 12/04/16 06:45 Hct 30.0 % (35.0-45.0) L D 12/04/16 06:45 MCV 82.4 fl (81-100) 12/04/16 06:45 MCH 28.6 pg (27.0-31.0) 12/04/16 06:45 MCHC Differential 34.7 pg (28.0-36.0) 12/04/16 06:45 RDW 13.4 % (11.5-20.0) 12/04/16 06:45 Plt Count 217 Th/cmm (150-400) 12/04/16 06:45 MPV 9.5 fl 12/04/16 06:45 Neutrophils % 62.4 % (40.0-80.0) 12/04/16 06:45 Lymphocytes % 29.4 % (20.0-50.0) 12/04/16 06:45 Monocytes % 5.7 % (2.0-10.0) 12/04/16 06:45 Eosinophils % 2.1 % (0.0-5.0) 12/04/16 06:45 Basophils % 0.4 % (0.0-2.0) 12/04/16 06:45 Neutrophils (Manual) 68 % (40-80) 12/03/16 18:38 Lymphocytes 30 % (20-50) 12/03/16 18:38 Monocytes 2 % (2-10) 12/03/16 18:38 Platelet Estimate ADEQUATE (NORMAL) 12/03/16 18:38 Platelet Morphology PLATELET CLUMPS SEEN (NORMAL) 12/03/16 18:38 RBC Morph Micro Appear NORMAL (NORMAL) 12/03/16 18:38 Sodium 131 mEq/L (136-145) L 12/05/16 10:48 Potassium 3.3 mEq/L (3.5-5.1) L 12/05/16 10:48 Chloride 100 mEq/L (98-107) 12/05/16 10:48 Carbon Dioxide 26.6 mEq/L (21.0-31.0) 12/05/16 10:48 Anion Gap 7.7 (7.0-16.0) 12/05/16 10:48 BUN 11 mg/dL (7-25) 12/05/16 10:48 Creatinine 0.9 mg/dL (0.6-1.2) 12/05/16 10:48 Est GFR ( Amer) TNP 12/05/16 10:48 Est GFR (Non-Af Amer) TNP 12/05/16 10:48 BUN/Creatinine Ratio 12.2 12/05/16 10:48 Glucose 229 mg/dL (70-105) H 12/05/16 10:48 POC Glucose 212 MG/DL (70 - 105) H 12/06/16 06:09 Hemoglobin A1c % 10.5 % (4.0-6.0) H 12/03/16 18:38 Whole Bld Lactic Acid 1.06 mmol/L (0.60-1.99) 12/03/16 18:38 Calcium 9.2 mg/dL (8.6-10.3) 12/05/16 10:48 Total Bilirubin 0.5 mg/dL (0.3-1.0) 12/03/16 18:38 AST 34 U/L (13-39) 12/03/16 18:38 ALT 19 U/L (7-52) 12/03/16 18:38 Alkaline Phosphatase 140 U/L (34-104) H 12/03/16 18:38 Total Protein 7.2 gm/dL (6.0-8.3) 12/03/16 18:38 Albumin 3.5 gm/dL (3.7-5.3) L 12/03/16 18:38 Globulin 3.7 gm/dL 12/03/16 18:38 Albumin/Globulin Ratio 1.0 (1.0-1.8) 12/03/16 18:38 Urine Source [place] 12/03/16 19:50 Urine Color PALE YELLOW 12/03/16 19:50 Urine Clarity SLIGHT HAZY (CLEAR) 12/03/16 19:50 Urine pH 7.5 12/03/16 19:50 Ur Specific [place] 1.015 (1.005-1.030) 12/03/16 19:50 Urine Protein TRACE mg/dL (NEGATIVE) 12/03/16 19:50 Urine Glucose (UA) 500 mg/dL (NEGATIVE) H 12/03/16 19:50 Urine Ketones NEGATIVE mg/dL (NEGATIVE) 12/03/16 19:50 Urine Blood TRACE (NEGATIVE) 12/03/16 19:50 Urine Nitrate NEGATIVE (NEGATIVE) 12/03/16 19:50 Urine Bilirubin NEGATIVE (NEGATIVE) 12/03/16 19:50 Urine Urobilinogen 0.2 E.U./dL (0.2 - 1.0) 12/03/16 19:50 Ur Leukocyte Esterase TRACE (NEGATIVE) H 12/03/16 19:50 Urine RBC 0-2 /hpf (0-5) 12/03/16 19:50 Urine WBC 2-5 /hpf (0-5) 12/03/16 19:50 Ur Epithelial Cells OCCASIONAL /lpf (FEW) 12/03/16 19:50 Amorphous Sediment FEW URATES (NONE SEEN) 12/03/16 19:50 Urine Bacteria MODERATE /hpf (NONE SEEN) 12/03/16 19:50 - Physical Exam Vitals and I&O: Vital Signs Temp 97.6 F 12/06/16 04:00 Pulse 86 12/06/16 08:27 Resp 20 12/06/16 04:00 BP 178/82 12/06/16 08:27 Pulse Ox 94 12/06/16 04:00 Intake & Output 12/05/16 12/06/16 12/06/16 18:59 06:59 18:59 Intake Total 2200 100 Output Total 2 Balance 2198 100 Weight (lbs) 74.888 kg Intake: Intake, IV Amount 1000 Sodium Chloride 0.9% 1, 1000 000 ml @ 60 mls/hr IV . [id number] [facility] Rx#:[id number] Oral 1200 100 Output: Urine 2 Other: # Voids 1 3 # Bowel Movements 0 Active Medications: Current Medications Acetaminophen (Tylenol) 650 mg PO Q4HR PRN PRN Reason: Fever > 101 Stop: 02/01/17 21:28 Last Admin: 12/04/16 20:25 Dose: 650 mg Alendronate Sodium (Fosamax) 70 mg PO QTHUR [facility] Stop: 02/06/17 07:29 Aspirin (Aspirin Chewable) 81 mg PO DAILY [facility] Stop: 02/02/17 08:59 Last Admin: 12/06/16 08:26 Dose: 81 mg Clonidine HCl (Catapres) 0.1 mg PO Q4HR PRN PRN Reason: SBP ABOVE 160 Stop: 02/01/17 21:28 Heparin Sodium (Porcine) (Heparin) 5,000 units SUBQ Q12HR [facility] Stop: 02/02/17 20:59 Last Admin: 12/06/16 08:27 Dose: 5,000 units Sodium Chloride (Nacl 0.9%) 1,000 mls @ 60 mls/hr IV .[id number] [facility] Stop: 02/01/17 21:29 Last Admin: 12/05/16 11:23 Dose: 60 mls/hr Ceftriaxone Sodium 1 gm/ (Dextrose) 50 mls @ 100 mls/hr IV Q24H [facility] Stop: 02/03/17 12:44 Last Admin: 12/05/16 13:54 Dose: 100 mls/hr Insulin Aspart (Novolog Insulin Sliding Scale) 0 units SUBQ ACHS [facility] PRN Reason: Protocol Stop: 02/02/17 07:29 Last Admin: 12/06/16 07:01 Dose: 5 units Isosorbide Mononitrate (Imdur) 60 mg PO DAILY [facility] Stop: 02/02/17 08:59 Last Admin: 12/06/16 08:27 Dose: 60 mg Losartan Potassium (Cozaar) 100 mg PO DAILY [facility] Stop: 02/02/17 08:59 Last Admin: 12/06/16 08:27 Dose: 100 mg Nitroglycerin (Nitrostat) 0.4 mg SL Q15M PRN PRN Reason: Chest Pain Stop: 02/01/17 21:28 General: Alert, No acute distress HEENT: Atraumatic Neck: Supple Cardiovascular: Regular rate Abdomen: Bowel sounds Extremities: Clubbing Assessment/Plan - Problem List Patient Problems: All Active Problems Diabetes (Acute) E11.9 HTN (hypertension) (Acute) I10 Muscle weakness (generalized) (Acute) M62.81 Osteoporosis (Acute) M81.0 UTI (urinary tract infection) (Acute) - Plan Plan: discharge planning Nutritional Asmnt/Malnutr-PDOC - Dietary Evaluation Malnutrition Findings (Please click <Entered> for more info): Nutritional Asmnt/Malnutrition Start: 12/05/16 16: 39 Text: Status: Complete Freq: Document 12/05/16 16:39 GSUN (Rec: 12/05/16 16:51 [email or web address] [id number]) Nutritional Asmnt/Malnutrition Patient General Information Nutritional Screening High Risk Screening Diagnosis UTI, possible sepsis, toxic metabolic encephalopathy, pyelonephritis Pertinent Medical Hx/Surgical Hx CVA, DM, myocardial infarction , multiple surgeries Subjective Information 76 [address] trigger for BG 685. Pt seemed to be frustrated and uncomfortable during visit, did not appear to want to speak to RD, edu on DM not provided for this reason. Pt asked RD to sit her up for lunch, upon opening lunch, pt stated she does not like any of this and proceeded to drinking coffee. RD attempted to obtain pt's food preferences. Per EMR meal records, avg PO itnake 50-75%. Current Diet Order/ Nutrition Support [id number] Pertinent Medications Novolog Pertinent Labs 12/03: A1c 10.5H 12/05: glucose 229H Nutritional Hx/Data Height 1.55 m Height (Calculated Centimeters) 154.9 Current Weight (lbs) 74.888 kg Weight (Calculated Kilograms) 74.9 Weight (Calculated Grams) 42899.1 [place] Body Weight 105 Weight Status Overweight GI Symptoms Skin Integrity/Comment: Ricky 20. Skin intact. Current %PO Fair (50-74%) Estimated Nutritional Goals Calories/Kcals/Kg IBW 105lb/47.7kg Kcals Calculated 1431-1670kcal (30-35kcal/kg, ? possible sepsis) Protein g/kg: IBW Protein Calculated 57-72g (1.2-1.5g/kg, ?possible sepsis) Fluid: ml 1431-1670ml (1ml/kcal) Nutritional Problem 2. Problem Problem Increased kcal and prot needs related to Etiology hypermetabolic state aeb Signs/Symptoms: possible sepsis 1. Problem Problem Altered nutrition related laboratory values related to Etiology DM aeb Signs/Symptoms: A1c 10.5H, glucose 229H Intervention/Recommendation Comments 1. Continue with [id number] diet . Avg PO intake is meeting 75% of estimated nutritional needs. 2. Provide edu on DM during follow up when appropriate. Expected Outcomes/Goals Expected Outcomes/Goals 1. PO itnake to meet 100% of estimated nutritional needs while in hypermetabolic state.
[2016-12-06 10:00] LABS: % BASOPHILS 0.6 % (0.0-2.0); % EOSINOPHILS 1.6 % (0.0-5.0); % LYMPHOCYTES 29.2 % (20.0-50.0); % MONOCYTES 5.5 % (2.0-10.0); % NEUTROPHILS 63.1 % (40.0-80.0); HEMATOCRIT 29.3 % (35.0-45.0); HEMOGLOBIN 10.1 gm/dL (11.7-16.1); MEAN CELL VOLUME 82.8 fl (81-100); MEAN CORPUSCULAR HEMOGLOBIN 28.6 pg (27.0-31.0); MEAN CORPUSCULAR HGB CONC 34.6 pg (28.0-36.0); MEAN PLATELET VOLUME 9.4 fl; NEUTROPHILE ABSOLUTE 5.4 Th/cmm (1.8-8.0); PLATELET COUNT 239 Th/cmm (150-400); RED BLOOD COUNT 3.53 Mil/cmm (3.80-5.20); RED CELL DISTRIBUTION WIDTH 13.9 % (11.5-20.0); WHITE BLOOD COUNT 8.6 Th/cmm (4.8-10.8)
[2016-12-06 10:24] LABS: ANION GAP 3.3 (7.0-16.0); BUN - UREA NITROGEN 10 mg/dL (7-25); BUN/CREATININE RATIO 11.1; CALCIUM SERUM 8.8 mg/dL (8.6-10.3); CARBON DIOXIDE 28.5 mEq/L (21.0-31.0); CHLORIDE 102 mEq/L (98-107); CREATININE - SERUM 0.9 mg/dL (0.6-1.2); GLUCOSE 239 mg/dL (70-105); SODIUM SERUM 131 mEq/L (136-145)
[2016-12-06 10:32] LABS: POTASSIUM SERUM 2.8 mEq/L (3.5-5.1)
[2016-12-06] MEDS: KCL 20mEq/100mL Premix 20 MEQ/100 ML PIGGYBACK IV SCH ×2 (11:09→15:00)
[2016-12-06] MEDS: Sodium Chloride 0.9% 1,000 ML IV SCH (17:11)
--- NOTE | 2016-12-10 19:53 | Discharge Summary ---
COURSE OF TREATMENT: The patient was [facility] due to weakness. In the emergency room, series of lab tests done showed that the patient has urinary tract infection. The patient was admitted to telemetry floor where the patient received a series of IV antibiotics. Afterwards the patient's condition was stabilized; the patient was discharged to long-term acute care for continuity of IV antibiotic management. The patient was discharged to [facility] for IV antibiotic management. DISCHARGE DIAGNOSES: 1. Urinary tract infection. 2. Hypertension. 3. Diabetes. 4. Osteoporosis. 5. Muscle weakness. DISCHARGE SUMMARY INSTRUCTION: To continue IV antibiotics at the LT[facility]. JOB# [id number]
== END 2016-12-06 22:10 | disposition short-term general hospital (02) | DRG 689 ==
LOC: ER 18:09 → TELE 21:25
PROVIDERS: ADMIT Internal Medicine; ATTEND Internal Medicine
DX: N39.0 Urinary tract infection, site not specified (principal); G92 Toxic encephalopathy; E11.65 Type 2 diabetes mellitus with hyperglycemia; E87.1 Hypo-osmolality and hyponatremia; I25.2 Old myocardial infarction; M62.81 Muscle weakness (generalized); M81.0 Age-related osteoporosis without current pathological fracture; I10 Essential (primary) hypertension; Z98.42 Cataract extraction status, left eye; Z98.41 Cataract extraction status, right eye; Z82.49 Family history of ischemic heart disease and other diseases of the circulatory system; Z83.3 Family history of diabetes mellitus; Z90.710 Acquired absence of both cervix and uterus; Z86.73 Personal history of transient ischemic attack (TIA), and cerebral infarction without residual deficits
CPT/HCPCS: 36415-UA; 71010-TC; 80048-TC; 80053-TC; 81001-TC; 82948-90; 83036-90; 83605; 85007-TC; 85025-TC; 85027-TC; 87086-90; 93005; 96375; J0696; J1644; J1815; J3480; J7030; Z7610